=== PATIENT | male | born 1990 | race Caucasian/White ===

== ENCOUNTER 2017-09-05 19:46 | Emergency (ER) | payer SELFPAY | END 2017-09-05 20:35 | disposition left against medical advice (07) | LOC: ED 19:46 | DX: Z53.21 Procedure and treatment not carried out due to patient leaving prior to being seen by health care provider (principal) ==

== ENCOUNTER 2017-11-18 21:07 | Emergency (ER) | payer MEDICAID ==
[~2017-11-18] VITALS: Ht 165.1 cm; Wt 75.4 kg
[2017-11-18 21:15] VITALS: Ht 165.1 cm; Wt 75.4 kg
[2017-11-18 23:08] VITALS: BP 102/60
== END 2017-11-18 23:15 | disposition home or self-care (01) ==
LOC: ED 21:07
DX: R07.89 Other chest pain (principal)
CPT/HCPCS: J1885; Q0092

== ENCOUNTER 2018-10-13 20:52 | Emergency (ER) | payer MEDICAID ==
[~2018-10-13] VITALS: Ht 162.6 cm; Wt 74.4 kg
[2018-10-13 20:58] VITALS: Ht 162.6 cm; Wt 74.4 kg
[2018-10-13 23:25] VITALS: BP 120/88
[2018-10-13 23:53] LABS: UA SPECIFIC GRAVITY 1.015 (1.005-1.035); microscopic required? YES; urine erythrocyte NEGATIVE (NEGATIVE)
== END 2018-10-14 01:24 | disposition home or self-care (01) ==
LOC: ED 20:52
PROVIDERS: Emergency Medicine
DX: A54.9 Gonococcal infection, unspecified (principal); A64 Unspecified sexually transmitted disease
CPT/HCPCS: 87491; 87591; J0696

== ENCOUNTER 2018-10-17 16:34 | Emergency (ER) | payer MEDICAID ==
[~2018-10-17] VITALS: Ht 162.6 cm; Wt 74.4 kg
[2018-10-17 16:42] VITALS: Ht 162.6 cm; Wt 74.4 kg
[2018-10-17 17:26] VITALS: BP 106/52
== END 2018-10-17 17:27 | disposition home or self-care (01) ==
LOC: ED 16:34
DX: Z11.3 Encounter for screening for infections with a predominantly sexual mode of transmission (principal); Z13.89 Encounter for screening for other disorder